=== PATIENT | male | born 1995 | race African-American/Black ===

== ENCOUNTER 2024-10-01 19:01 | Emergency (ER) | payer SELFPAY ==
[~2024-10-01] VITALS: Ht 182.9 cm; Wt 70.0 kg
[2024-10-01 19:11] VITALS: TEMP 37.1; O2SAT 99
[2024-10-01 20:27] VITALS: BP 132/77; PULSE 87; RESP 17; O2SAT 100
== END 2024-10-01 21:07 | disposition home or self-care (01) ==
LOC: ER 19:01
DX: Z00.00 Encounter for general adult medical examination without abnormal findings (principal)
CPT/HCPCS: 99283